=== PATIENT | female | born 1995 | race Caucasian/White ===

== ENCOUNTER 2018-11-20 22:27 | Emergency (ER) | payer BC, MEDICAID ==
--- NOTE | 2018-11-20 22:49 | EDM.PDOC ---
ED HPI GENERAL MEDICAL PROBLEM - General Chief Complaint: General Stated Complaint: painful urination Time Seen by Provider: 11/20/18 22:40 Source of Information: Reports: Patient History Limitations: Reports: No Limitations - History of Present Illness INITIAL COMMENTS - FREE TEXT/NARRATIVE: in with c/o urinary frequency and pain for the past few days, also has noticed blood in her urine, no fever or chills, no unusual vagina discharge, no NVDC, has had some pain in her lower back, also is not sure if she could be . Onset: Gradual Duration: Day(s): Location: Reports: Abdomen, Back Quality: Reports: Burning, Pressure Severity: Moderate Improves with: Reports: None Worsens with: Reports: Other (voiding) Associated Symptoms: Reports: No Other Symptoms Treatments E[employer]PECTOR: Reports: Other (see below) (none) - Related Data Allergies Allergy/AdvReac Type Severity Reaction Status Date / Time No Known Allergies Allergy Verified 11/20/18 22:28 Home Meds: Home Meds . 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 - Past Surgical History HEENT Surgical History: Reports: Tonsillectomy GI Surgical History: Reports: Appendectomy, Cholecystectomy Social & Family History - Family History Family Medical History: Noncontributory Cardiac: Reports: Hypertension - Tobacco Use Smoking Status *Q: Current Every Day Smoker Years of Tobacco use: 6 Packs/Tins Daily: 1 - Caffeine Use Caffeine Use: Reports: Soda - Recreational Drug Use Recreational Drug Use: No - Living Situation & Occupation Living situation: Reports: Single, with Family ED ROS GENERAL - Review of Systems Review Of Systems: See Below Constitutional: Denies: Fever, Chills HEENT: Reports: No Symptoms Respiratory: Reports: No Symptoms. Denies: Shortness of Breath, Cough Cardiovascular: Reports: No Symptoms. Denies: Chest Pain Endocrine: Reports: No Symptoms GI/Abdominal: Reports: Abdominal Pain (low abd/suprapubic tenderness). Denies: Constipation, Diarrhea, Distension, Nausea, Vomiting : Reports: No Symptoms, Frequency, Hematuria, Pain, Urgency. Denies: Discharge, Dysuria, Flank Pain, Incontinence, Urinary Retention Musculoskeletal: Reports: No Symptoms. Denies: Neck Pain Skin: Reports: No Symptoms. Denies: Rash Neurological: Reports: No Symptoms Psychiatric: Reports: No Symptoms ED EXAM, GENERAL - Physical Exam Exam: See Below Exam Limited By: No Limitations General Appearance: Alert, WD/WN, No Apparent Distress Ears: Normal External Exam Nose: Normal Inspection Throat/Mouth: Normal Inspection, Normal Lips Head: Atraumatic, Normocephalic Neck: Normal Inspection, Supple, Non-Tender, Full Range of Motion Respiratory/Chest: No Respiratory Distress, Lungs Clear, Normal Breath Sounds, No Accessory Muscle Use Cardiovascular: Normal Peripheral Pulses, Regular Rate, Rhythm, No Murmur Peripheral Pulses: 2+: Radial (R) GI/Abdominal: Normal Bowel Sounds, Soft, No Distention, Tender (suprapubic tenderness with palpation) Back Exam: Normal Inspection, Full Range of Motion. No: CVA Tenderness (L), CVA Tenderness (R) Extremities: Normal Inspection, Normal Range of Motion, Non-Tender, Normal Capillary Refill Neurological: Alert, Oriented, Normal Cognition, Normal Gait, No Motor/Sensory Deficits Psychiatric: Normal Affect, Normal Mood Skin Exam: Warm, Dry, Intact, Normal Color, No Rash Course - Vital Signs Last Recorded V/S: Last Vital Signs Temp 36.4 C 11/20/18 22:28 Pulse 100 11/20/18 22:28 Resp 16 11/20/18 22:28 BP 117/68 11/20/18 22:28 Pulse Ox 100 11/20/18 22:28 - Orders/Labs/Meds Orders: Active Orders 24 hr Category Date Time Status Phenazopyridine [Urinary Pain Relief] Med 11/21/18 23:14 Once 95 mg PO ONETIME ONE cephALEXin [Keflex] Med 11/20/18 23:14 Once 500 mg PO ONETIME ONE Labs: Laboratory Tests 11/20/18 11/20/18 Range/Units 22:43 22:43 Urine Color Yellow (YELLOW) Urine Appearance Clear (CLEAR) Urine pH 7.0 (4.5-8.0) Ur Specific [place] 1.025 H (1.003-1.020) Urine Protein 30 H (NEGATIVE) mg/dL Urine Glucose (UA) Negative (NEGATIVE) mg/dL Urine Ketones Negative (NEGATIVE) mg/dL Urine Occult Blood Large H (NEGATIVE) Urine Nitrite Negative (NEGATIVE) Urine Bilirubin Negative (NEGATIVE) Urine Urobilinogen 0.2 (0.2-1.0) EU/dL Ur Leukocyte Esterase Negative (NEGATIVE) Urine RBC 30-40 H (0-5) /HPF Urine WBC Not seen (0-5) /HPF Ur Squamous Epith Cells Few H (NOT SEEN) /HPF Urine Bacteria Few H (NOT SEEN) /HPF Urine HCG, Qual Negative Departure - Departure Time of Disposition: 23:16 Disposition: Home, Self-Care 01 Condition: Good Clinical Impression: Urinary tract infection - Discharge Information *PRESCRIPTION DRUG MONITORING PROGRAM REVIEWED*: Not Applicable *COPY OF PRESCRIPTION DRUG MONITORING REPORT IN PATIENT CARLA: Not Applicable Instructions: Urinary Tract Infection, Adult Forms: ED Department Discharge Additional Instructions: increase fluids keflex 500mg 3 x a day for 5 days pyridium 100mg 3 x a days for 2 days follow up with your family doctor in 7-10 days for a recheck return to the ED sooner if worse or problems - Problem List & Annotations (1) Urinary tract infection SNOMED Code(s): 16663955 Code(s): N39.0 - URINARY TRACT INFECTION, SITE NOT SPECIFIED Status: Acute Priority: Medium Qualifiers: Urinary tract infection type: acute cystitis Hematuria presence: with hematuria Qualified Code(s): N30.01 - Acute cystitis with hematuria - Problem List Review Problem List Initiated/Reviewed/Updated: Yes - My Orders Last 24 Hours: My Active Orders 11/20/18 23:14 cephALEXin [Keflex] 500 mg PO ONETIME ONE 11/21/18 23:14 Phenazopyridine [Urinary Pain Relief] 95 mg PO ONETIME ONE - Assessment/Plan Last 24 Hours: My Active Orders 11/20/18 23:14 cephALEXin [Keflex] 500 mg PO ONETIME ONE 11/21/18 23:14 Phenazopyridine [Urinary Pain Relief] 95 mg PO ONETIME ONE Plan: pts ua is neg but she has UTI sx, has burning and frequency with urination, therefore, I will tx symptomatically with keflex and pyridium, pt has no vaginal dc or dyspurenia. no foul oder.
[2018-11-20] MEDS ORDERED: Cephalexin 500 MG Cap PO ONE (23:14)
[2018-11-20] MEDS ORDERED: Phenazopyridine 95 MG Tab ONE (23:24)
[2018-11-21] MEDS ORDERED: Phenazopyridine 95 MG Tab PO ONE (23:14)
== END 2018-11-20 23:28 | disposition home or self-care (01) ==
LOC: CC.ED 22:27
DX: N30.01 Acute cystitis with hematuria (principal); F17.210 Nicotine dependence, cigarettes, uncomplicated
CPT/HCPCS: 81001; 81025; 99283; A9270